=== PATIENT | male | born 1960 | race Caucasian/White ===

== ENCOUNTER 2016-07-25 19:41 | Observation (INO) | payer OTHER ==
[2016-07-25 20:37] LABS: MEAN CORPUSCULAR HEMOGLOBIN 26.3 pg (25.0-35.0); MEAN CORPUSCULAR HGB CONC 32.9 g/dl (31.0-37.0); MEAN PLATELET VOLUME 9.7 fl (7.0-11.0); RED CELL DISTRIBUTION WIDTH 13.5 % (11.5-14.5); WHITE BLOOD COUNT 9.9 10^3/ul (4.5-11.0)
[2016-07-25 20:48] LABS: INR 1.05 (0.93-1.08)
[2016-07-25 21:03] LABS: ALB/GLOB RATIO 1.1 (1.1-1.8); ALKALINE PHOSPHATASE 56 U/L (38-133); ALT/SGPT 32 U/L (7-56); AST/SGOT 29 U/L (15-59); BILIRUBIN,TOTAL 0.4 mg/dL (0.2-1.3); BLOOD UREA NITROGEN 15 mg/dL (7-21); CARBON DIOXIDE 25 mmol/L (21-33); CHLORIDE 101 mmol/L (98-107); GFR AFRICAN-AMERICAN > 60; GLUCOSE,RANDOM 106 mg/dL (70-110); POTASSIUM 3.9 mmol/L (3.6-5.0); SODIUM 135 mmol/L (132-148); TOTAL PROTEIN 7.3 g/dL (5.8-8.3)
--- NOTE | 2016-07-25 21:05 | ED PDOC ---
Arrival/HPI - General Chief Complaint: High Blood Pressure Time Seen by Provider: 07/25/16 19:49 Historian: Patient - History of Present Illness Narrative History of Present Illness (Text): 07/25/16 21:00 56 year old male whose past medical history includes hypertension and GE reflux presents to the emergency department complaining of labile hypertension, bilateral intermittent shoulder/upper chest discomfort, and occasional shortness of breath. Patient states he recently arrived from [place] and was seen by his PMD who advised him to come to the Emergency room. Patient also reports occasional episodes in recent past of blurred vision, none now. Denies any arm or leg weakness. No history of any trauma. No chest pain or shortness of breath. No fever or chills. Time/Duration: 24 hours Symptom Onset: Sudden Symptom Course: Unchanged Modifying Factors (Text): None Past Medical History - Provider Review Nursing Documentation Reviewed: Yes - Travel History If Yes, travel location?: [place] - Cardiac Hx Hypertension: Yes - Pulmonary Hx Respiratory Disorders: No - Neurological Hx Neurological Disorder: No - HEENT Hx HEENT Disorder: No - Renal Hx Renal Disorder: No - Endocrine/Metabolic Hx Endocrine Disorders: No - Hematological/Oncological Hx Blood Disorders: No - Integumentary Hx Dermatological Disorder: No - Musculoskeletal/Rheumatological Hx Musculoskeletal Disorders: No - Gastrointestinal Hx Gastrointestinal Disorders: No - Genitourinary/Gynecological Hx Genitourinary Disorders: No - Psychiatric Hx Psychophysiologic Disorder: No Hx Substance Use: No - Anesthesia Hx Anesthesia: No Family/Social History - Physician Review Nursing Documentation Reviewed: Yes Family/Social History: Unknown Family HX Smoking Status: Never Smoked Hx Alcohol Use: No Hx Substance Use: No Allergies/Home Meds Allergies/Adverse Reactions: Allergies No Known Allergies Allergy (Unverified 07/25/16 20:06) Review of Systems - Physician Review All systems were reviewed & negative as marked: Yes - Review of Systems Constitutional: absent: Fevers Eyes: Vision Changes (Blurred (resolved)) Respiratory: absent: SOB Cardiovascular: absent: Chest Pain Musculoskeletal: Other (Intermittent shoulder/upper chest ddiscomfort) Neurological: absent: Focal Weakness Physical Exam Vital Signs Reviewed: Yes Vital Signs Temp Pulse Resp BP Pulse Ox 07/26/16 00:43 84 18 117/72 97 07/25/16 22:50 77 14 132/89 100 07/25/16 20:42 143/79 07/25/16 19:48 98.9 F 90 16 143/79 98 Temperature: Afebrile Blood Pressure: Normal Pulse: Regular Respiratory Rate: Normal Appearance: Positive for: Well-Appearing, Non-Toxic, Comfortable Pain Distress: None Mental Status: Positive for: Alert and Oriented X 3 - Systems Exam Head: Present: Atraumatic, Normocephalic Pupils: Present: PERRL Extroacular Muscles: Present: EOMI Conjunctiva: Present: Normal Mouth: Present: Moist Mucous Membranes Neck: Present: Normal Range of Motion, Other (Supple) Respiratory/Chest: Present: Clear to Auscultation, Good Air Exchange. No: Respiratory Distress, Accessory Muscle Use Cardiovascular: Present: Regular Rate and Rhythm, Normal S1, S2. No: Murmurs Abdomen: Present: Normal Bowel Sounds. No: Tenderness, Distention, Peritoneal Signs Back: Present: Normal Inspection Upper Extremity: Present: Normal Inspection, Normal ROM. No: Cyanosis, Edema Lower Extremity: Present: Normal Inspection, Normal ROM. No: Edema Neurological: Present: GCS=15, CN II-XII Intact, Speech Normal Skin: Present: Warm, Dry, Normal Color. No: Rashes Psychiatric: Present: Alert, Oriented x 3, Normal Insight, Normal Concentration Medical Decision Making ED Course and Treatment: Impression: 56 year old male whose past medical history includes hypertension and GE reflux presents to the emergency department complaining of labile hypertension, bilateral intermittent shoulder/upper chest discomfort, and occasional shortness of breath. Plan: -- CT Head, EKG, Chest X-ray -- Labs -- Reassess and disposition Progress Notes: Reviewed EKG, NSR at [address]-segment elevations or depressions, no T-wave inversions, normal intervals. 07/25/16 22:45 Reviewed radiology, CXR shows no active disease. CT Head shows: Brain: Unremarkable. No hemorrhage. No significant white matter disease. No edema. Ventricles: Unremarkable. No ventriculomegaly. Bones/joints: Unremarkable. No acute fracture. Soft tissues: Unremarkable. Sinuses: Mild mucoperiosteal thickening of the LEFT maxillary sinus. Near- complete opacification of the RIGHT maxillary sinus. Patchy opacification of the ethmoid sinuses bilaterally. Small amount of fluid noted in the sphenoid sinuses. Acute sinusitis cannot be excluded. Mastoid air cells: Minimal fluid noted in the LEFT mastoid air cells. IMPRESSION: No evidence of acute intracranial hemorrhage. No midline shift or hydrocephalus. Pansinus disease. 07/25/16 23:[address] Rivers, who requests pt go to hospitalist service. 07/26/16 01:[address] Grajeda, who is aware and agrees with plan. Accept pt in to hospitalist service. Pt will go to Telemetry observation for chest pain and hypertension. - Lab Interpretations Lab Results: 07/25/16 20:15 07/25/16 20:15 Lab Results 07/25/16 20:15: WBC 9.9, RBC 4.75, Hgb 12.5 L, Hct 38.0 L, MCV 80.0, MCH 26.3, MCHC 32.9, RDW 13.5, Plt Count 302, MPV 9.7 07/25/16 20:15: PT 11.3, INR 1.05, APTT 29.0 07/25/16 20:15: Sodium 135, Potassium 3.9, Chloride 101, Carbon Dioxide 25, Anion Gap 13, BUN 15, Creatinine 1.0, Est GFR ( Amer) > 60, Est GFR (Non- Af Amer) > 60, Random Glucose 106, Calcium 9.0, Total Bilirubin 0.4, AST 29, ALT 32, Alkaline Phosphatase 56, Lactate Dehydrogenase 350, Total Creatine Kinase 90, Troponin I < 0.01, Total Protein 7.3, Albumin 3.8, Globulin 3.5, Albumin/Globulin Ratio 1.1 - RAD Interpretation Radiology Orders: 07/25/16 20:07 HEAD W/O CONTRAST [CT] Stat 07/25/16 20:08 CHEST PORTABLE [RAD] Stat - Scribe Statement The provider has reviewed the documentation as recorded by the Jacki Hutchinson Provider Scribe Attestation: All medical record entries made by the Jacki were at my direction and personally dictated by me. I have reviewed the chart and agree that the record accurately reflects my personal performance of the history, physical exam, medical decision making, and the department course for this patient. I have also personally directed, reviewed, and agree with the discharge instructions and disposition. Disposition/Present on Arrival - Present on Arrival Any Indicators Present on Arrival: No History of DVT/PE: No History of Uncontrolled Diabetes: No Urinary Catheter: No History of Decub. Ulcer: No History Surgical Site Infection Following: None - Disposition Have Diagnosis and Disposition been Completed?: Yes Diagnosis: Uncontrolled hypertension, Chest pain, H/O blurred vision Disposition: HOSPITALIZED Disposition Time: 01:59 Patient Plan: Observation Condition: STABLE Discharge Instructions (ExitCare): Chest Pain (ED) Referrals: Zena Rivers MD [Primary Care Provider] - Follow up with primary
[2016-07-25 21:11] LABS: TROPONIN I < 0.01 ng/mL
--- NOTE | 2016-07-26 04:05 | CP.PCM.HP ---
<JoseFuad - Last Filed: 07/26/16 04:36> History of Present Illness - History of Present Illness History of Present Illness: CC: high blood pressure This patient is a 56yo M w/ no significant PMHx on no medications who is coming from [place] to go to Dr. Eaton office; she referred him to the ED. He has been complaining of transient problems speaking, where for 20-30seconds he will have trouble finding words, and will have to stop and think very hard to find the word in both martiniquais and [place]. This has never happened to him before. He is also complaining of shoulder pain, as well as problems walking during these spells. This has been happening for the past 3 weeks. It is not associated with headache, blurry vision, double vision, trouble seeing, SOB, CP , abdominal pain, N/V/D, dysuria/freq/urg, lower extremity pain/swelling, denies depression/anxiety/AV hallucinations. Denies weight loss, night sweats, dry cough. States eyes have been itchy red and painful also for these 3 weeks. PMhx: None Meds: None Allergies: None FamHx: Denies Social: back and forth between [place]; says job is "very stressful working for 8-9 hours a day", , denies ever smoking/drinking/ilicit drugs Surgeries: denies Present on Admission - Present on Admission Any Indicators Present on Admission: No History of DVT/PE: No History of Uncontrolled Diabetes: No Urinary Catheter: No Decubitus Ulcer Present: No Past Patient History - Past Social History Smoking Status: Never Smoked - CARDIAC Hx Hypertension: Yes - PULMONARY Hx Respiratory Disorders: No - NEUROLOGICAL Hx Neurological Disorder: No - HEENT Hx HEENT Problems: No - RENAL Hx Chronic Kidney Disease: No - ENDOCRINE/METABOLIC Hx Endocrine Disorders: No - HEMATOLOGICAL/ONCOLOGICAL Hx Blood Disorders: No - INTEGUMENTARY Hx Dermatological Problems: No - MUSCULOSKELETAL/RHEUMATOLOGICAL Hx Musculoskeletal Disorders: No - GASTROINTESTINAL Hx Gastrointestinal Disorders: No - GENITOURINARY/GYNECOLOGICAL Hx Genitourinary Disorders: No - PSYCHIATRIC Hx Psychophysiologic Disorder: No Hx Substance Use: No - SURGICAL HISTORY Hx Surgeries: No - ANESTHESIA Hx Anesthesia: No Meds Allergies/Adverse Reactions: Allergies Allergy/AdvReac Type Severity Reaction Status Date / Time No Known Allergies Allergy Unverified 07/25/16 20:06 Physical Exam - Constitutional Appears: Well, Non-toxic - Head Exam Head Exam: ATRAUMATIC, NORMAL INSPECTION - Eye Exam Eye Exam: Conjunctival injection, Periorbital tenderness Pupil Exam: NORMAL ACCOMODATION - ENT Exam ENT Exam: Mucous Membranes Moist Additional comments: tenderness in the frontal sinus and mxillary sinus - Neck Exam Neck exam: Positive for: Full Rom. Negative for: Lymphadenopathy - Respiratory Exam Respiratory Exam: Clear to Auscultation Bilateral, NORMAL BREATHING PATTERN. absent: Rales, Rhonchi, Wheezes - Cardiovascular Exam Cardiovascular Exam: REGULAR RHYTHM, +S1, +S2 - GI/Abdominal Exam GI & Abdominal Exam: Normal Bowel Sounds, Soft. absent: Tenderness - Rectal Exam Rectal Exam: Deferred - Extremities Exam Extremities exam: Positive for: normal inspection, pedal pulses present. Negative for: calf tenderness, pedal edema, tenderness - Back Exam Back exam: NORMAL INSPECTION. absent: CVA tenderness (L), CVA tenderness (R) - Neurological Exam Neurological exam: Alert, CN II-XII Intact, Normal Gait, Oriented x3, Reflexes Normal - Psychiatric Exam Psychiatric exam: Normal Affect, Normal Mood - Skin Skin Exam: Warm Results - Vital Signs Recent Vital Signs: Last Vital Signs Temp 98.7 F 07/26/16 03:17 Pulse 82 07/26/16 03:06 Resp 18 07/26/16 03:06 BP 144/94 H 07/26/16 03:06 Pulse Ox 99 07/26/16 03:06 - Labs Result Diagrams: 07/25/16 20:15 07/25/16 20:15 Assessment & Plan - Assessment and Plan (Free Text) Assessment: 56yo M admitted for uncontrolled HTN Uncontrolled HTN -CT Head ShowedNo evidence of acute intracranial hemorrhage. No midline shift or hydrocephalus. 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 Grajeda Decision To Admit - Pt Status Changed To: Hospital Disposition Of: Observation - . Bed Request Type: Med/Surg Admitting Physician: Mike Grajeda <Mike Grajeda - Last Filed: 07/29/16 04:12> Results - Vital Signs Recent Vital Signs: Last Vital Signs Temp 98.5 F 07/26/16 16:00 Pulse 99 H 07/26/16 16:00 Resp 18 07/26/16 16:00 BP 129/92 H 07/26/16 16:00 Pulse Ox 100 07/26/16 16:00 - Labs Result Diagrams: 07/26/16 10:45 07/26/16 10:45 Attending/Attestation - Attestation I have personally seen and examined this patient.: Yes I have fully participated in the care of the patient.: Yes I have reviewed all pertinent clinical information: Yes Notes (Text): 07/29/16 04:12 Agree with history , physical examination , assessment and plan.
[2016-07-26] MEDS: Amoxicillin-Clav 875-125 mg Tab PO SCH ×3 (04:25→17:41)
[2016-07-26 04:56] VITALS: BMI 29.5
[2016-07-26 08:15] VITALS: RESP 18
--- NOTE | 2016-07-26 08:54 | RAD ---
HISTORY: fever COMPARISON: No prior. FINDINGS: LUNGS: No active pulmonary disease. PLEURA: No significant pleural effusion identified, no pneumothorax apparent. CARDIOVASCULAR: Minimal cardiomegaly possible OSSEOUS STRUCTURES: No significant abnormalities. VISUALIZED UPPER ABDOMEN: Normal. OTHER FINDINGS: None. IMPRESSION: No acute pulmonary pathology. Minimal cardiomegaly possible
--- NOTE | 2016-07-26 10:10 | CT ---
PROCEDURE: CT HEAD WITHOUT CONTRAST. HISTORY: transient blurred vision COMPARISON: None available. TECHNIQUE: Axial computed tomography images were obtained through the head/brain without intravenous contrast. Radiation dose: Total exam DLP = 725 mGy-cm. This CT exam was performed using one or more of the following dose reduction techniques: Automated exposure control, adjustment of the mA and/or kV according to patient size, and/or use of iterative reconstruction technique. FINDINGS: HEMORRHAGE: No intracranial hemorrhage. BRAIN: No mass effect or edema. No atrophy or chronic microvascular ischemic changes. VENTRICLES: Unremarkable. No hydrocephalus. CALVARIUM: Unremarkable. PARANASAL SINUSES: There is partial opacification of the paranasal sinuses consistent with sinusitis MASTOID AIR CELLS: Unremarkable as visualized. No inflammatory changes. OTHER FINDINGS: The report concurs with the preliminary [facility] report IMPRESSION: No acute intracranial findings. Sinusitis
[2016-07-26 11:04] LABS: ADD MANUAL DIFF? NO
[2016-07-26 11:10] LABS: BASO # 0.02 K/mm3 (0.0-2.0); BASO % 0.2 % (0.0-3.0); EOS # 0.2 (0.0-0.7); EOS % 2.1 % (1.5-5.0); GRAN # 6.68 (1.4-6.5); GRAN % 68.7 % (50.0-68.0); HEMATOCRIT 39.3 % (42.0-52.0); LYMPH # 2.2 (1.2-3.4); LYMPH % 22.6 % (22.0-35.0); MEAN CELL VOLUME 79.4 fL (80.0-105.0); MEAN CORPUSCULAR HEMOGLOBIN 26.9 pg (25.0-35.0); MEAN CORPUSCULAR HGB CONC 33.8 g/dl (31.0-37.0); MEAN PLATELET VOLUME 10.2 fl (7.0-11.0); MONO # 0.6 (0.1-0.6); MONO % 6.4 % (1.0-6.0); PLATELET COUNT 318 10^3/uL (120.0-450.0); RED CELL DISTRIBUTION WIDTH 13.3 % (11.5-14.5); WHITE BLOOD COUNT 9.7 10^3/ul (4.5-11.0)
[2016-07-26 11:22] LABS: ALB/GLOB RATIO 1.1 (1.1-1.8); ALKALINE PHOSPHATASE 54 U/L (38-133); ALT/SGPT 38 U/L (7-56); AST/SGOT 22 U/L (15-59); BILIRUBIN,TOTAL 0.7 mg/dL (0.2-1.3); BLOOD UREA NITROGEN 11 mg/dL (7-21); CALCIUM 9.1 mg/dL (8.4-10.5); CARBON DIOXIDE 23 mmol/L (21-33); CHLORIDE 102 mmol/L (98-107); CHOLESTEROL 135 mg/dL (130-200); GFR AFRICAN-AMERICAN > 60; GLUCOSE,RANDOM 125 mg/dL (70-110); MAGNESIUM 1.9 mg/dL (1.7-2.2); PHOSPHOROUS 3.1 mg/dL (2.5-4.5); POTASSIUM 4.1 mmol/L (3.6-5.0); SODIUM 135 mmol/L (132-148); TOTAL PROTEIN 7.7 g/dL (5.8-8.3)
[2016-07-26 11:26] LABS: IRON 41 ug/dL (45-180)
[2016-07-26 11:36] LABS: TROPONIN I < 0.01 ng/mL
--- NOTE | 2016-07-26 11:39 | CON ---
DATE: 07/26/2016 CARDIOLOGY CONSULTATION REASON FOR CONSULTATION: Uncontrolled hypertension and possibility of TIA. HISTORY OF PRESENT ILLNESS: The patient is a 56-year-old [place] male who arrived recently from sd s home country [facility] and presented because of slurring of speech and uncontrolled hypertension, an d was referred by his PMD to the Emergency Room. The patient stated that 3 weeks earlier while in [facility], he did experience similar symptoms and was evaluated in [place], but he was told he had no s troke. The patient denies any retrosternal chest pain. The patient did report blurry vision earlier , but denies any arm or leg weakness, or numbness. SOCIAL HISTORY: The patient is a nonsmoker, nondrinker. 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 MEDICATIONS: Augmentin 1 tablet twice a day, Motrin 600 mg q. 6 hours, Pepcid 20 mg p.o. twice a day , Zestril 5 mg once a day. REVIEW OF SYSTEMS: No nausea or vomiting. No fever or chills. PHYSICAL EXAMINATION: GENERAL: The patient is a middle-aged male who does not appear to be in any distress. VITAL SIGNS: Blood pressure 129/84, heart rate 79, temperature 97.8, respirations 18. HEENT: Normocephalic. NECK: No JVD. CHEST: Clear. HEART: S1, S2 regular. ABDOMEN: Soft. EXTREMITIES: No edema. LABORATORY DATA: Hemoglobin and hematocrit 13.3 and 39.3. White count and platelet counts are withi n normal limits. SMA-7 today is entirely within normal limits. One set of troponin is negative. PT and PTT are within normal limits. Head CT scan without contrast: No acute intracranial findings. EKG revealed normal sinus rhythm. ASSESSMENT: 1. Hypertension. 2. Rule out transient ischemic attack. RECOMMENDATIONS: Continue Zestril at 5 mg once a day, Pepcid 20 mg ____ a day. Start aspirin 81 mg once a day. Obtain an echocardiogram, carotid Doppler, and consider brain MRI. Start Lipitor at 20 mg once a day. Lalit Ponce MD cc: [id number] TT: 07/26/2016 11:38:54 Confirmation # [id number] Dictation # [id number]
[2016-07-26 11:41] LABS: FREE T4 1.21 ng/dL (0.78-2.19)
[2016-07-26 11:55] LABS: THYROID STIMULATING HORMONE 1.08 mIU/mL (0.46-4.68)
--- NOTE | 2016-07-26 13:07 | CON ---
DATE: 07/26/2016 CHIEF COMPLAINT: Slurred speech. 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 No focal weakness at this time. No slurred speech while assessing the patient. No aphasia noted. CAT scan of the head showed no acute intracranial abnormality. He just got back in from [place] from a flight. Currently, he is moving all extremities equally. He had el evated systolic and diastolic blood pressures which is currently being controlled. Cardiology has se en him. He is on aspirin and Lipitor for stroke prevention. He had elevated triglycerides at 212 an d LDL of 181. No focal weakness of extremities. SOCIAL HISTORY: Nonsmoker, nondrinker. 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 MEDICATIONS: Reviewed via nurse's reconciliation sheet. FAMILY HISTORY: Noncontributory. REVIEW OF SYSTEMS: A 14-point review of systems is negative except for HPI. PHYSICAL EXAMINATION: VITAL SIGNS: Temperature afebrile, pulse rate of 79, blood pressure 129/84, respiratory rate of 18. GENERAL: The patient is sitting up in bed in no acute distress. HEENT: Atraumatic, normocephalic. PERRLA. Extraocular muscles intact. NECK: Supple, no JVD, no adenopathy noted. LUNGS: Clear to auscultation. No adventitious sounds. HEART: S1, S2, normal rate and rhythm. No murmurs, rubs, or gallops. ABDOMEN: Soft, nontender, nondistended. Bowel sounds present. EXTREMITIES: No clubbing, no cyanosis. Peripheral pulses 2+ felt bilaterally. NEUROLOGIC: The patient is alert, oriented to person, place, month and year. Speech is fluent, with out any errors. Cranial nerves II through XII are intact. MOTOR: Moves all extremities equally. No pronator drift seen. SENSORY: Light touch, pinprick, proprioception, vibration is intact. DTRs are 2+ throughout. COORDINATION: [id number] intact. LABORATORIES: Sodium 135, potassium 4.1, chloride of 102, carbon dioxide 23, BUN of 11, creatinine o f 1. Random glucose 125. ASSESSMENT AND PLAN: This is a 56-year-old [place] man with hypertension, on no meds, had transien t difficulty getting out his speech for 20-30 seconds and mildly slurred, found to have elevated syst olic and diastolic blood pressures in his PMD's office and came to the hospital for further evaluatio n. No focal weakness in the extremities. No sensory deficits seen. His speech is at his baseline. CT head showed no acute intracranial abnormality. Likely his transient symptoms are secondary to hy pertensive urgency. At this time, recommend: 1. Aspirin 81 mg, Lipitor 20 mg for stroke prevention. 2. Get better control of his blood sugar, low salt diet, keep his blood pressures between 120-130 mm Hg. 3. He is clinically stable from my standpoint cardiac clearance. Will sign off. Terry Sears MD cc: [id number] TT: 07/26/2016 13:06:27 Confirmation # [id number] Dictation # [id number]
--- NOTE | 2016-07-26 14:36 | CP.PCM.DIS ---
Provider - Provider Date of Admission: 07/26/16 02:05 Attending physician: Michael Mason MD Primary care physician: Zena Rivers MD Consults: [facility] Time Spent in preparation of Discharge (in minutes): 45 Hospital Course - Lab Results Lab Results: Most Recent Lab Values WBC 9.7 10^3/ul (4.5-11.0) 07/26/16 10:45 RBC 4.95 10^6/uL (3.5-6.1) 07/26/16 10:45 Hgb 13.3 gm/dL (14.0-18.0) L 07/26/16 10:45 Hct 39.3 % (42.0-52.0) L 07/26/16 10:45 MCV 79.4 fL (80.0-105.0) L 07/26/16 10:45 MCH 26.9 pg (25.0-35.0) 07/26/16 10:45 MCHC 33.8 g/dl (31.0-37.0) 07/26/16 10:45 RDW 13.3 % (11.5-14.5) 07/26/16 10:45 Plt Count 318 10^3/uL (120.0-450.0) 07/26/16 10:45 MPV 10.2 fl (7.0-11.0) 07/26/16 10:45 Gran % 68.7 % (50.0-68.0) H 07/26/16 10:45 Lymph % (Auto) 22.6 % (22.0-35.0) 07/26/16 10:45 [place] % (Auto) 6.4 % (1.0-6.0) H 07/26/16 10:45 Eos % (Auto) 2.1 % (1.5-5.0) 07/26/16 10:45 Baso % (Auto) 0.2 % (0.0-3.0) 07/26/16 10:45 Gran # 6.68 (1.4-6.5) H 07/26/16 10:45 Lymph # 2.2 (1.2-3.4) 07/26/16 10:45 [place] # 0.6 (0.1-0.6) 07/26/16 10:45 Eos # 0.2 (0.0-0.7) 07/26/16 10:45 Baso # 0.02 K/mm3 (0.0-2.0) 07/26/16 10:45 PT 11.3 Seconds (9.9-11.8) 07/25/16 20:15 INR 1.05 (0.93-1.08) 07/25/16 20:15 APTT 29.0 Seconds (23.7-30.8) 07/25/16 20:15 Sodium 135 mmol/L (132-148) 07/26/16 10:45 Potassium 4.1 mmol/L (3.6-5.0) 07/26/16 10:45 Chloride 102 mmol/L (98-107) 07/26/16 10:45 Carbon Dioxide 23 mmol/L (21-33) 07/26/16 10:45 Anion Gap 14 (10-20) 07/26/16 10:45 BUN 11 mg/dL (7-21) 07/26/16 10:45 Creatinine 1.0 mg/dL (0.5-1.4) 07/26/16 10:45 Est GFR ( Amer) > 60 07/26/16 10:45 Est GFR (Non-Af Amer) > 60 07/26/16 10:45 Random Glucose 125 mg/dL (70-110) H 07/26/16 10:45 Calcium 9.1 mg/dL (8.4-10.5) 07/26/16 10:45 Phosphorus 3.1 mg/dL (2.5-4.5) 07/26/16 10:45 Magnesium 1.9 mg/dL (1.7-2.2) 07/26/16 10:45 Iron 41 ug/dL (45-180) L 07/26/16 10:45 TIBC 334 ug/dL (261-462) 07/26/16 10:45 % Saturation 12 % (20-55) L 07/26/16 10:45 Total Bilirubin 0.7 mg/dL (0.2-1.3) 07/26/16 10:45 AST 22 U/L (15-59) 07/26/16 10:45 ALT 38 U/L (7-56) 07/26/16 10:45 Alkaline Phosphatase 54 U/L (38-133) 07/26/16 10:45 Lactate Dehydrogenase 350 U/L (333-699) 07/25/16 20:15 Total Creatine Kinase 90 U/L (35-230) 07/25/16 20:15 Troponin I < 0.01 ng/mL 07/26/16 10:45 Total Protein 7.7 g/dL (5.8-8.3) 07/26/16 10:45 Albumin 4.0 g/dL (3.0-4.8) 07/26/16 10:45 Globulin 3.6 gm/dL 07/26/16 10:45 Albumin/Globulin Ratio 1.1 (1.1-1.8) 07/26/16 10:45 Triglycerides 212 mg/dL (35-160) H 07/26/16 10:45 Cholesterol 135 mg/dL (130-200) 07/26/16 10:45 LDL Cholesterol Direct 81 mg/dL (0-129) 07/26/16 10:45 HDL Cholesterol 18 mg/dL (29-60) L 07/26/16 10:45 Free T4 1.21 ng/dL (0.78-2.19) 07/26/16 10:45 TSH 3rd Generation 1.08 mIU/mL (0.46-4.68) 07/26/16 10:45 - Hospital Course Hospital Course: Admit date- 07/26 DC date- 07/26/16 Attending: Dr. Mason Discharge diagnoses 1.R/o stroke 2. HTN 3. sinusitis Stable for discharge procedures- none No complications Consults [facility] Hospital course This is a 56 yo male with no reported past medical hx presenting for stroke like symptoms, r/o stroke Uncontrolled HTN, r/o stroke -CT Head Showed no evidence of acute intracranial hemorrhage. No midline shift or hydrocephalus. 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 asa 81 mg po daily 2. lipitor 3. lisinopril 5 mg po daily 4. augmentin bid po for 7 days total DC instructions Please dc home. Please f/u with PMD. Please return if condition worsens. Please take all rx as prescribed. - Date & Time of H&P Date of H&P: 07/26/16 Time of H&P: 04:04 Discharge Exam - Head Exam Head Exam: ATRAUMATIC, NORMAL INSPECTION - Eye Exam Eye Exam: EOMI - ENT Exam ENT Exam: Mucous Membranes Moist - Neck Exam Neck exam: Full Rom, Normal Inspection - Respiratory Exam Respiratory Exam: NORMAL BREATHING PATTERN, UNREMARKABLE - Cardiovascular Exam Cardiovascular Exam: +S1, +S2 - GI/Abdominal Exam GI & Abdominal Exam: Normal Bowel Sounds - Extremities Exam Extremities exam: full ROM, normal inspection - Neurological Exam Neurological exam: Alert, CN II-XII Intact, Oriented x3 - Psychiatric Exam Psychiatric exam: Normal Affect, Normal Mood - Skin Skin Exam: Dry, Intact, Normal Color, Warm Discharge Plan - Discharge Medications Prescriptions: Amoxicillin/Clavulanate [Augmentin 875 MG-125 MG Tab] 1 tab PO BID #12 tab Aspirin [Aspirin Chewable] 81 mg PO DAILY #30 Atorvastatin [Lipitor] 20 mg PO DIN #30 tab Lisinopril [Zestril] 5 mg PO DAILY #30 tab - Follow Up Plan Condition: STABLE Disposition: HOME/ ROUTINE Referrals: Zena Rivers MD [Primary Care Provider] -
--- NOTE | 2016-07-26 15:18 | MRI ---
PROCEDURE: MRI BRAIN WITHOUT CONTRAST HISTORY: r/o cva COMPARISON: None. TECHNIQUE: Multiplanar, multisequence MR images of the brain were obtained without intravenous contrast enhancement. FINDINGS: HEMORRHAGE: None DWI: No evidence of an acute or early subacute infarction. BRAIN PARENCHYMA: No mass effect or edema. No atrophy or chronic microvascular ischemic changes. VENTRICLES: Unremarkable. No hydrocephalus. CRANIUM: Unremarkable. ORBITS: Grossly unremarkable. PARANASAL SINUSES/MASTOIDS: There is extensive sinusitis. There is opacification of the majority of the paranasal sinuses. VASCULAR SYSTEM: Skull base flow voids intact. OTHER FINDINGS: None. IMPRESSION: Extensive sinusitis. No acute intracranial abnormalities
--- NOTE | 2016-07-26 16:12 | CARD ---
APPROVED REPORT EKG Measurement Heart [id number] <Conclusion> Normal sinus rhythm Normal ECG
--- NOTE | 2016-07-26 17:25 | CARD ---
APPROVED REPORT EXAM: Two-dimensional and M-mode echocardiogram with Doppler and color Doppler. INDICATION CVA/TIA 2D DIMENSIONS Left Atrium (2D)3.8 (1.6-4.0cm)IVSd1.1 (0.7-1.1cm) LVDd4.0 (3.9-5.9cm)PWd1.3 (0.7-1.1cm) LVDs2.5 (2.5-4.0cm)FS (%) 37.2 % LVEF (%)67.7 (>50%) M-Mode DIMENSIONS Aortic Root3.80 (2.2-3.7cm)Aortic Cusp Exc.1.80 (1.5-2.0cm) Mitral Valve MV E Wqsnnrrl36.7cm/sMV A Vribmwbr97.4cm/sE/A ratio0.7 TDI Lateral E' Peak V7.12cm/sMedial E' Peak V6.43cm/sE/Lateral E'8.7 E/Medial E'9.6 Pulmonary Valve PV Peak Helfptvy97.9cm/sPV Peak Grad.2mmHg Tricuspid Valve TR Peak Hpyuwunw415ow/sRAP [id number] Peak Gr.26mmHg [id number] LEFT VENTRICLE The left ventricle is normal size. There is mild concentric left ventricular hypertrophy. The left ventricular function is normal. The left ventricular ejection fraction is within the normal range. There is normal LV segmental wall motion. Transmitral Doppler flow pattern is Grade I-abnormal relaxation pattern. RIGHT VENTRICLE The right ventricle is normal size. There is normal right ventricular wall thickness. The right ventricular systolic function is normal. ATRIA The left atrium size is normal. The right atrium size is normal. AORTIC VALVE The aortic valve is normal in structure. No aortic regurgitation is present. There is no aortic valvular stenosis. MITRAL VALVE The mitral valve is mildly thickened. There is no mitral valve regurgitation noted. There is no mitral valve stenosis. TRICUSPID VALVE There is mild tricuspid regurgitation. There is mild pulmonary hypertension. GREAT VESSELS The aortic root is normal in size. PERICARDIAL EFFUSION There is a small loculated anterior pericardial effusion. <Conclusion> The left ventricle is normal size. There is mild concentric left ventricular hypertrophy. The left ventricular function is normal. The left ventricular ejection fraction is within the normal range. There is normal LV segmental wall motion. Transmitral Doppler flow pattern is Grade I-abnormal relaxation pattern. There is mild tricuspid regurgitation. There is mild pulmonary hypertension.
[2016-07-26 18:01] VITALS: BP 129/92; PULSE 99; TEMP 98.5; O2SAT 100
[2016-07-26 18:09] LABS: FOLATE 6.6 ng/mL
--- NOTE | 2016-07-26 19:23 | US ---
PROCEDURE: Bilateral carotid artery duplex ultrasound HISTORY: Carotid stenosis TIA PHYSICIAN(S): Hasmukh Ortega MD. TECHNIQUE: Duplex sonography and color-flow Doppler were used to evaluate the carotid bifurcations and limited segments of the vertebral arteries bilaterally. FINDINGS: There is mild smooth hypoechoic plaque noted at the carotid bifurcations bilaterally. The peak systolic velocity in the proximal right internal carotid artery is 55 cm/sec. This corresponds to a 20 to 39% proximal right ICA stenosis. Normal systolic velocities are noted in the proximal right external carotid artery. There is antegrade flow in the right vertebral artery. The peak systolic velocity in the proximal left internal carotid artery is 74 cm/sec. This corresponds to a 20 to 39% proximal left ICA stenosis. Normal systolic velocities are noted in the proximal left external carotid artery. There is antegrade flow in the left vertebral artery. IMPRESSION: 1. Bilateral 20-39% proximal ICA stenoses. 2. Antegrade flow in both vertebral arteries.
== END 2016-07-26 18:35 | disposition home or self-care (01) ==
LOC: ED 19:41 → ERH 07-26 02:05 → 3RNO 07-26 04:44
PROVIDERS: ADMIT Internal Medicine; ATTEND Internal Medicine
DX: I16.0 Hypertensive urgency (principal); J01.40 Acute pansinusitis, unspecified; B96.89 Other specified bacterial agents as the cause of diseases classified elsewhere; D64.9 Anemia, unspecified
CPT/HCPCS: 36415; 70450; 70551; 71010; 80053; 80061; 80074; 82550; 82607; 82728; 82746; 83036; 83540; 83550; 83615; 83735; 84100; 84439; 84443; 84484; 85025; 85027; 85610; 85730; 86592; 93005; 93306; 93880; 99285; G0378